=== PATIENT | male | born 1995 | race Caucasian/White ===

== ENCOUNTER 2021-11-11 16:06 | Emergency (ER) | payer OTHER ==
[2021-11-11 16:23] VITALS: BP 126/90; PULSE 97; TEMP 98.6; BMI 22.4
== END 2021-11-11 19:17 | disposition home or self-care (01) ==
LOC: JER 16:06 → JERFT 16:06
DX: F10.10 Alcohol abuse, uncomplicated (principal)
CPT/HCPCS: 99281-25